=== PATIENT | male | born 1970 | race Caucasian/White ===

== ENCOUNTER 2020-12-31 13:11 | Outpatient (REF) | payer OTHER, SELFPAY ==
--- NOTE | ~2020-12-31 | CT_ITS ---
EXAMINATION: CT CHEST SCREENING CLINICAL INFORMATION: Nicotine dependence. COMPARISON: None. TECHNIQUE: Multidetector volumetric CT imaging of the chest is performed without contrast using low dose technique. Additional 2D coronal and sagittal reformatted images and axial 3D maximum intensity projection (MIP) images are generated on the CT workstation. This CT examination was performed using dose optimization techniques as appropriate, variously including the following: *Automated exposure control *Adjustment of mA and/or kV according to patient size (this includes techniques or standardized protocols for targeted exams where dose is matched to indication/reason for exam; i.e. extremities or head) *Use of iterative reconstruction technique DLP: 52 mGy-cm FINDINGS: LUNGS: The lungs are well-expanded and clear of acute pneumonic process. There is a 2 mm nodule left upper lobe, 2 mm calcification right lower lobe subpleural location axial image 300/6, 1 mm calcified nodule left lower lobe superior segment image 81/9. MEDIASTINUM: The thyroid lobes are symmetrical and normal. The central trachea and the bronchi widely patent. Heart size and the great vessels are normal caliber. There are small precarinal and pretracheal lymph nodes which appear benign measuring 7 mm and less in short axis. PLEURA: There is no pleural effusion. No pleural mass or thickening. AXILLA: Small shotty lymph nodes are seen in the axilla. The chest wall appears unremarkable. UPPER ABDOMEN: Visualized liver, spleen, contracted gallbladder and bilateral adrenal glands are unremarkable. OSSEOUS STRUCTURES: No lytic or sclerotic process seen. CT/CT lung screening IMPRESSION: 2 mm calcified and noncalcified likely benign. Small shotty lymph nodes in the mediastinum and the right axilla. ASSESSMENT: Lung-RADS category 2: Benign RECOMMENDATION: Low dose annual CT chest
== END 2020-12-31 13:12 | disposition home or self-care (01) ==
LOC: HO.CT 13:11
PROVIDERS: PCP Nurse Practitioner Family; Visit Provider Physician Assistant Medical
DX: Z12.2 Encounter for screening for malignant neoplasm of respiratory organs (principal); F17.210 Nicotine dependence, cigarettes, uncomplicated; R91.1 Solitary pulmonary nodule
CPT/HCPCS: 71271

== ENCOUNTER 2021-06-03 15:20 | Outpatient (REF) | payer OTHER, SELFPAY ==
[2021-06-03 16:48] LABS: Appearance Urine CLEAR; Color Urine YELLOW; Glucose Urine UA NEG (NEG); Leukocyte Esterase Urine NEG (NEG); Nitrite Urine NEG (NEG); PH 5.5 (5.0-8.0); Specific Gravity - Urine >= 1.030 (1.005-1.025); Urine Blood NEG (NEG); Urine Ketones NEG (NEG); Urine Protein TRACE MG/DL (NEG-TRACE)
[2021-06-03 17:05] LABS: Alanine Aminotransferase 22 U/L (0-40); Albumin Level 4.4 g/dL (3.5-5.0); Alkaline Phosphatase 27 U/L (39-117); Anion Gap 12 (12-20); Aspartate Amino Transferase 19 U/L (5-37); Bilirubin Total 0.4 mg/dL (0.0-1.0); Blood Urea Nitrogen 12 mg/dL (9-16); Calcium 9.5 mg/dL (8.4-10.2); Carbon Dioxide 26 mmol/L (22-29); Chloride 105 mmol/L (96-108); Cholesterol 215 mg/dL; Estimated Glomerular Filt Rate > 60; Glucose Fasting 91 mg/dL (60-99); HDL Cholesterol 25 mg/dL; Potassium 4.1 mmol/L (3.3-5.1); Sodium 139 mmol/L (135-145); Total Protein 6.8 g/dL (6.5-8.0); Triglycerides 410 mg/dL
[2021-06-03 17:29] LABS: TSH reflex Free T4 1.28 uIU/mL (0.32-4.0)
== END 2021-06-03 15:21 | disposition home or self-care (01) ==
LOC: HO.HMGCLDS 15:20
PROVIDERS: PCP Nurse Practitioner Family; Visit Provider Nurse Practitioner Family
DX: Z00.00 Encounter for general adult medical examination without abnormal findings (principal); Z12.5 Encounter for screening for malignant neoplasm of prostate
CPT/HCPCS: 36415; 80053; 80061; 81003; 84153; 84443

== ENCOUNTER 2021-08-08 11:41 | Outpatient (REF) | payer OTHER, SELFPAY ==
--- NOTE | ~2021-08-08 | XR_ITS ---
EXAMINATION: XR RIBS, RIGHT CLINICAL INFORMATION: Thoracic injury. COMPARISON: Chest of September 15, [address] of December 31, 2020 TECHNIQUE: PA chest and three-view right ribs FINDINGS: There is no evidence of acute parenchymal disease, pneumothorax, or pleural effusion. Heart normal size. No evidence of pulmonary edema. No acute displaced right rib fracture identified. No destructive bony lesion is evident. XR/XR ribs RT min 3V w CXR1V IMPRESSION: No acute parenchymal disease within the chest. No bony abnormality of the right ribs identified.
== END 2021-08-08 11:42 | disposition home or self-care (01) ==
LOC: HO.HMGCX 11:41
PROVIDERS: PCP Nurse Practitioner Family; Visit Provider Physician Assistant Medical
DX: S29.9XXA Unspecified injury of thorax, initial encounter (principal)
CPT/HCPCS: 71101

== ENCOUNTER 2021-10-20 10:08 | Emergency (ER) | payer OTHER, SELFPAY ==
[2021-10-20 10:22] VITALS: BP 98/77; PULSE 82; RESP 16; TEMP 36.1; O2SAT 97; BMI 28.3
--- NOTE | 2021-10-20 12:56 | ED.GENADULT ---
HPI - General Adult General Chief complaint: General Medical Stated complaint: Hemorrhoid Time Seen by Provider: 10/20/21 11:46 Source: patient Mode of arrival: ambulatory Limitations: no limitations History of Present Illness HPI narrative: 50-year-old female with a history of hemorrhoids that have flared up an O is resolved on their own presents for 5 days of severe hemorrhoid pain. Patient has a low lot of pain with stooling though he is able to stool. the hemorrhoid is bigger and more harder than it is ever been. He has no fevers. No bloody stool, no dark tarry stool. Patient has been using steroid cream and tucks medicated wipes to no relief. Related Data Previous Rx's Medication Instructions Recorded albuterol sulfate 90 mcg/actuation 2 puff INHALATION Q6H PRN 30 Days 11/27/20 aerosol inhaler (Ventolin HFA) #8.5 g fluticasone propionate 50 2 spray INTRANASAL DAILY 30 Days 04/04/21 mcg/actuation nasal #16 g spray,suspension meloxicam 15 mg tablet 15 mg PO DAILY PRN 30 Days #30 tab 05/25/21 atorvastatin 20 mg tablet 20 mg PO BEDTIME 30 Days #30 tab 09/09/21 Allergies Allergy/AdvReac Type Severity Reaction Status Date / Time garlic Allergy Unknown hives Verified 08/08/21 11:14 peanut [PEANUTS] Allergy Unknown HIVES Verified 10/20/21 10:21 penicillin V Allergy Unknown anaphylaxis Verified 08/08/21 11:14 Penicillins Allergy Unknown HIVES TO Verified 10/20/21 10:21 ALL CILLINS Sulfa (Sulfonamide Allergy Unknown HIVES, Verified 10/20/21 10:21 Antibiotics) rash, [SULFA (SULFONAMIDE severe ANTIBIOTICS)] hives barium sulfate AdvReac Unknown vivid Verified 08/08/21 11:14 nightmares nicotine AdvReac Unknown rash Verified 08/08/21 11:14 garlic Allergy Mild Vomiting Uncoded 08/08/21 11:14 nuts Allergy Unknown Vomiting Uncoded 08/08/21 11:14 Peanut (Diagnostic) Allergy Unknown hives Uncoded 08/08/21 11:14 orange juice AdvReac Unknown Hives Uncoded 08/08/21 11:14 Review of Systems Constitutional: Constitutional: Denies body ache(s), Denies chills, Denies fatigue, Denies fever(s), Denies headache(s), Denies malaise and Denies weakness Eyes: Eyes: Denies diplopia ENT: Denies vertigo, Denies dizziness, Denies headache(s) and Denies throat swelling Cardiovascular: Cardiovascular: Denies chest pain, Denies syncope, Denies leg edema, Denies lightheadedness, Denies Loss of Consciousness, Denies palpitations and Denies dyspnea Respiratory: Respiratory: Denies chest congestion, Denies cough and Denies dyspnea Gastrointestinal: Gastrointestinal: Denies abdominal pain, Denies melena, Denies hematochezia, Denies coffee ground emesis, Denies constipation, Denies diarrhea, Denies nausea and Denies vomiting Comments: Hemorrhoid Musculoskeletal: Musculoskeletal: Reports no additional musculoskeletal complaints Neurologic: Denies confusion, Denies vertigo, Denies dizziness, Denies syncope, Denies headache(s) and Denies weakness Psychiatric: Psychiatric: Denies anxiety, Denies confusion and Denies depression Endocrine: Endocrine: Denies fatigue and Denies palpitations Allergic/Immunologic: Allergic/Immunologic: Denies throat swelling PMFSH Past Medical History Medical History Asthma Hyperlipidemia Surgical History H/O wrist surgery Social History Social History Housing: House Patient Tobacco Use Status: Current everyday Tobacco user Cigarettes Per Day: 10 e-Cigarette/Vaping Use: Never Used Second Hand Smoke Exposure: No Advance Directives: No Advance Directives Information Provided: No service: No Current occupational status: unemployed Physical Exam ED Vital Signs: Vital Signs - 24 hr 10/20/21 10:22 Temperature 97.0 F Pulse Rate 82 Respiratory Rate 16 Blood Pressure 98/77 Pulse Oximetry 97 BMI result Body Mass Index 28.3 Const General: no acute distress, well developed, alert and awake; No confusion Nutritional Appearance: well nourished Orientation/consciousness: patient oriented x3 and No confusion Limitations: no limitations HENMT Head: Yes normal to inspection, Yes No palpable skull fracture present, Yes normocephalic and Yes atraumatic Eyes Pupils: Equal, round and reactive pupils present EOM: EOMs intact bilaterally Neck Neck: Yes normal visual inspection, Yes full ROM and Yes no lymphadenopathy Chest Chest palpation & inspection: normal inspection of the chest Resp Effort & Inspection: normal respiratory effort and able to speak in complete sentences Auscultation: clear to auscultation bilaterally, no crackles, no rales, no rhonchi and no wheezes Cardio Rate: regular rate Rhythm: regular rhythm GI Inspection: Yes normal to inspection Palpation (GI): Soft to palpation, not firm and nontender Rectal Exam - Male: Yes External hemorrhoid(s) present and Yes tenderness Skin General skin exam: no rashes or lesions noted Neuro General: patient oriented x3 and No confusion Cranial nerves: Yes Equal, round and reactive pupils present Extrem General: Yes normal to inspection, Yes full ROM and Yes capillary refill normal Course Course Course Narrative: On exam, there is a 3 cm thrombosed external hemorrhoid at the anal verge on the left lateral side of anus, no cellulitis or swelling, no warmth. Thrombosed hemorrhoid is hard and purplish I am concerned to incise and decompress this thrombosed hemorrhoid as hemorrhoid is very close to the anal verge [place] texted with Dr Roy, who will see patient in office early this week Provided pain control, counseled Sitz baths, gave return precautions Discharge Plan Discharge Clinical Impression: External hemorrhoid, thrombosed Patient Disposition: Home, Self-Care Instructions: Hemorrhoids (ED) Additional Instructions: please call Dr Juan on Thursday at [phone]. Their office is closed on Thursday. The surgeon is aware if you, and will get you in to the office on Thursday. In the meantime, please alternate Tylenol and ibuprofen as I have indurated below. Because you do not have a bath tub, and are unable to do Sitz baths, please get of hand towel as hot as you can stand with hot water, and sit on it for 5 times a day for 50 minutes at a time. Please return to emergency room if you have fevers, uncontrolled pain, or any other new or concerning symptoms. Please alternate Tylenol and ibuprofen for pain. Take 1 or the other every 4 hours. For example, at midnight take 1000 mg of Tylenol, then at 4:00 a.m. take 800 mg ibuprofen, at 8:00 a.m. take 1000 mg of Tylenol, at noon take 800 mg of ibuprofen, at 4:00 p.m. take 1000 mg of Tylenol, at 8:00 p.m. take 800 mg of ibuprofen. Do not exceed 3000 mg of Tylenol in 24 hours. This method is proven to be as effective as an opioid for pain control. Prescriptions: No Action albuterol sulfate [Ventolin HFA] 90 mcg/actuation HFA aerosol inhaler 2 puff inhalation Q6H PRN (Reason: shortness of breath or wheezing) 30 Days Qty: 8.5 2RF fluticasone propionate 50 mcg/actuation spray,suspension 2 spray intranasal DAILY 30 Days Qty: 16 2RF meloxicam 15 mg tablet 15 mg PO DAILY PRN (Reason: pain) 30 Days Qty: 30 1RF atorvastatin 20 mg tablet 20 mg PO BEDTIME 30 Days Qty: 30 2RF Referrals: Colin Juan MD [Physician] - Interventions: ED Discharge Assessment Last Done: 10/20/21 13:19 Discharge Date/Time: 10/20/21 13:22
== END 2021-10-20 13:22 | disposition home or self-care (01) ==
PROVIDERS: Emergency Provider Emergency Medicine; PCP Nurse Practitioner Family
DX: K64.5 Perianal venous thrombosis (principal); J45.909 Unspecified asthma, uncomplicated; Z88.0 Allergy status to penicillin; Z88.2 Allergy status to sulfonamides
CPT/HCPCS: 99282; 99283

== ENCOUNTER → 2021-10-24 15:14 | Outpatient (BNVA) | payer OTHER, SELFPAY | PROVIDERS: PCP Nurse Practitioner Family; Referring Provider Nurse Practitioner Family; Visit Provider Surgery | DX: K64.5 Perianal venous thrombosis (principal) | CPT/HCPCS: 99202 ==

== ENCOUNTER 2023-06-02 11:28 | Outpatient (AMB) | payer OTHER, SELFPAY ==
--- NOTE | 2023-06-02 11:28 | MHC.PC.OV ---
Vital Signs 06/02/23 11:32 Height 5 ft 4 in Weight 179 lb BMI 30.7 BP 110/70 Blood Pressure Location Rt brachial Position Sitting Pulse 82 Pulse Source Pulse Oximeter Pulse Oximetry (%) 97 Oxygen Delivery Method Room Air Intake Visit Reasons: annual PE Intake Note: Patient here for physical exam, he would like to talk about a pinched nerve on left side and starts from the hip down to the knee. states it has become constant. Pt states he has not had a colonoscopy. Allergies garlic Allergy (Unknown, Verified 06/02/23 11:34) hives peanut [PEANUTS] Allergy (Unknown, Verified 06/02/23 11:34) HIVES Penicillins Allergy (Unknown, Verified 06/02/23 11:34) HIVES TO ALL CILLINS Sulfa (Sulfonamide Antibiotics) [SULFA (SULFONAMIDE ANTIBIOTICS)] Allergy (Unknown, Verified 06/02/23 11:34) HIVES, rash, severe hives barium sulfate Adverse Reaction (Unknown, Verified 06/02/23 11:34) vivid nightmares nicotine Adverse Reaction (Unknown, Verified 06/02/23 11:34) rash nuts Allergy (Unknown, Uncoded 06/02/23 11:34) Vomiting orange juice Adverse Reaction (Unknown, Uncoded 06/02/23 11:34) Hives Medication List - Last Reconciled 06/02/23 by RASHI Dickey- albuterol sulfate 90 mcg/actuation (Ventolin HFA) 2 puffs inhalation Q6H PRN atorvastatin 20 mg PO BEDTIME 30 days fluticasone propionate 50 mcg/actuation 2 sprays intranasal DAILY 30 days mometasone-formoterol 200-5 mcg/actuation (Dulera) 2 puffs inhalation BID Tobacco use date assessed: 06/02/23 Dental Screening Dental Screen Date: 06/02/23 HPI annual PE HPI Details Pt is here for a PE. Will order labs. Due for PSA, will order. Denies dribbling with urination, weak stream, and frequent nocturia. Pt was previously referred for a colonoscopy but he has not had time to do this. Will order cologuard. Pt c/o lower back pain. He reports radicular symptoms to his left lower extremities as well. Will order XR. Denies any signs of cauda equina. COUNTS INCLUDE 234 BEDS AT THE [facility] Medical History Hyperlipidemia Asthma Surgical History H/O wrist surgery Family History Father Mental health disorder Social History Housing: House Patient Tobacco Use Status: Current everyday Tobacco user Cigarettes Per Day: 10 e-Cigarette/Vaping Use: Never Used Second Hand Smoke Exposure: No service: No Current occupational status: unemployed Cognitive needs: No Hearing needs: No Vision needs: No Questionnaire Thrive Questionnaire Date Thrive assessed: 06/02/22 TRENA-7 AMB Questionnaire TRENA-7 Date TRENA - 7 assessed: 06/02/22 Source: Developed by Drs. Toño Cabezas, Edith Lindquist, Ishan Huerta and colleagues, with an educational gabrielle from [employer]. Review of Systems Const Denies chills and Denies fever(s) Eyes Denies blurry vision ENT Denies vertigo, Denies dizziness and Denies sore throat Card Denies chest pain at rest, Denies chest pain with activity, Denies diaphoresis, Denies dyspnea and Denies dyspnea on exertion Resp Denies cough, Denies dyspnea, Denies dyspnea on exertion and Denies wheezing GI Denies abdominal pain, Denies melena, Denies hematochezia, Denies constipation, Denies diarrhea and Denies loose stools Denies hematuria Musc Reports back pain Skin/Breast Denies lesions Neuro Denies vertigo and Denies dizziness Psych Denies anxiety, Denies depression, Denies homicidal ideation, Denies suicidal ideation and Denies other (substance abuse) Aller/Immun Denies wheezing Physical exam (Primary Care) Vital Signs: Last Vital Signs Pulse 82 06/02/23 11:32 BP 110/70 06/02/23 11:32 Pulse Ox 97 06/02/23 11:32 Oxygen Delivery Method Room Air 06/02/23 11:32 BMI result Body Mass Index 30.7 Tobacco/Smoking Status: Tobacco use Status Tobacco use date assessed 11/28/23 11/28/23 11:38 Patient Tobacco Use Status Current everyday Tobacco 06/02/23 11:31 e-Cigarette/Vaping Use Never Used 06/02/23 11:31 Thrive Assessment: Date of Thrive Assessment Date Thrive assessed 06/02/22 06/02/23 11:31 Const General: cooperative Nutritional Appearance: well nourished Orientation/consciousness: patient oriented x3 HENMT Head: Yes normal to inspection, Yes normocephalic and Yes atraumatic Ears: TM's normal bilaterally Eyes General: appearance normal, both eyes and all related structures Alignment and Position: alignment normal and position normal Neck Neck: Yes normal visual inspection and Yes no lymphadenopathy Thyroid: Thyroid normal Resp Effort & Inspection: normal respiratory effort Auscultation: clear to auscultation bilaterally and diminished lung sounds Cardio Rate: regular rate Rhythm: regular rhythm Heart sounds: S1 normal heart sound present, S2 normal heart sound present and no murmurs GI Palpation (GI): Soft to palpation and nontender Auscultation: normal bowel sounds Male General Exam: Yes normal external exam Penis: normal penis Scrotum: scrotum normal, testes descended bilaterally and no inguinal hernias Testes: no testicular mass Skin Rashes: no rashes Neuro General: patient oriented x3, moves all extremities, no focal motor deficits and deep tendon reflexes 2+ bilaterally Romberg Test: Negative Psych Appearance: grossly normal Mental Status: mental status grossly normal Speech and movement: Normal speech and movement present Affect: normal affect Attitude: cooperative Thought process: Normal thought process present Thought content: Normal thought content present Insight: Good insight present (Psych) Judgement: Good judgement present (Psych) Assessment and Plan Assessment & Plan (1) Physical exam: Code(s): Z00.00 - Encounter for general adult medical examination without abnormal findings Plan: Labs ordered (2) Screening PSA (prostate specific antigen): Code(s): Z12.5 - Encounter for screening for malignant neoplasm of prostate Plan: PSA ordered (3) Chronic radicular pain of lower back: Code(s): M54.16 - Radiculopathy, lumbar region; G89.29 - Other chronic pain Plan: XR ordered Plan The patient agreed to the use of a medical research tech for this encounter. Scribed for JORI Reynoso by justine Camp scribe, on 06/02/2023 at 11:45 EST. Orders: Orders Complete Blood Count Auto Diff Today Z00.00 - Encounter for general adult medical examination without abnormal findings Comprehensive Neptune. Panel Fast Today Z00.00 - Encounter for general adult medical examination without abnormal findings TSH reflex Free T4 Today Z00.00 - Encounter for general adult medical examination without abnormal findings UA CC w/rflx Micro + Cult Today Z00.00 - Encounter for general adult medical examination without abnormal findings Lipid Panel Today Z00.00 - Encounter for general adult medical examination without abnormal findings Prostate Specific Antigen Scr Today Z12.5 - Encounter for screening for malignant neoplasm of prostate XR lumbar spine 2-3V Today G89.29 - Other chronic pain, M54.16 - Radiculopathy, lumbar region Referrals Cologuard Test Z12.11 - Encounter for screening for malignant neoplasm of colon, Z12.12 - Encounter for screening for malignant neoplasm of rectum Coding Level of Care Code Est Pt Prev Care 40-64y(33249) Diagnoses Physical exam Z00.00 Screening PSA (prostate specific antigen) Z12.5 Chronic radicular pain of lower back M54.16; G89.29
[2023-06-02 11:32] VITALS: BP 110/70; PULSE 82; O2SAT 97; BMI 30.7
== END 2023-06-02 12:12 | disposition home or self-care (01) ==
PROVIDERS: Visit Provider Nurse Practitioner Family
DX: Z00.00 Encounter for general adult medical examination without abnormal findings (principal); Z12.5 Encounter for screening for malignant neoplasm of prostate; M54.16 Radiculopathy, lumbar region; G89.29 Other chronic pain
CPT/HCPCS: 99396

== ENCOUNTER 2023-08-12 13:01 | Outpatient (AMB) | payer OTHER, SELFPAY ==
[2023-08-12 13:04] VITALS: BP 116/69; PULSE 83; BMI 31.3
--- NOTE | 2023-08-12 13:04 | A.OFFVIS_ITS ---
Intake Vital Signs 08/12/23 13:04 Height 5 ft 4 in Weight 182 lb 8.684 oz BMI 31.3 BP 116/69 Blood Pressure Location Lt brachial Position Sitting Pulse 83 Intake Visit Reasons: Colonoscopy Screening Intake Note: Patient presents to in office visit today as a new patient for colonoscopy screening. CC: Patient reports he gets constipated from time to time. Patient states that the only time he has black stools is when he eats something he is intolerant to. Mental Measurements Teacher Required: No Accompanied by: Self / Same As Patient Allergies garlic Allergy (Unknown, Verified 08/12/23 13:17) hives peanut [PEANUTS] Allergy (Unknown, Verified 08/12/23 13:17) HIVES Penicillins Allergy (Unknown, Verified 08/12/23 13:17) HIVES TO ALL CILLINS Sulfa (Sulfonamide Antibiotics) [SULFA (SULFONAMIDE ANTIBIOTICS)] Allergy (Unknown, Verified 08/12/23 13:17) HIVES, rash, severe hives barium sulfate Adverse Reaction (Unknown, Verified 08/12/23 13:17) vivid nightmares nicotine Adverse Reaction (Unknown, Verified 08/12/23 13:17) rash nuts Allergy (Unknown, Uncoded 06/02/23 11:34) Vomiting orange juice Adverse Reaction (Unknown, Uncoded 06/02/23 11:34) Hives HPI Colonoscopy Screening HPI Details 52-year-old male here for preprocedural meeting to discuss a screening colonoscopy. He is referred by Colin Mei of [facility] primary care. PMX Asthma High cholesterol Chronic low back pain with radiculopathy Left sacroiliac dysfunction Paresthesias Positive Cologuard test * SURGICAL HISTORY Wrist surgery for boxer fracture Dermal cyst removal * ALLERGIES Penicillin - hives facial swelling Sulfa - same as above Barium sulfate Garlic - intolerance Peanuts - intolerance Nicotine patches on skin Nuts - intolerance [place] juice - intolerance * [facility] LABS: No current labs in our system since 2020 TODAY'S VISIT This will be his first colonoscopy. He denies any bowel problems except when he eats the above intolerant foods, no upper GI problems. He is fairly naive to anesthesia and sedation. His asthma is well controlled, no cardiac problems. NO ID problems. His brother had colon polyps removed. [facility] Medical History (Updated 08/12/23 @ 17:13 by KURT Horne) Screening for colon cancer Screening PSA (prostate specific antigen) Physical exam Hyperlipidemia Asthma Surgical History H/O wrist surgery Family History Father Mental health disorder Maternal Aunt Cancer Maternal Uncle Cancer Social History Housing: House Patient Tobacco Use Status: Current everyday Tobacco user Cigarettes Per Day: 10 e-Cigarette/Vaping Use: Never Used Second Hand Smoke Exposure: No service: No Current occupational status: unemployed Cognitive needs: No Hearing needs: No Vision needs: No Review of Systems Const Denies fatigue, Denies fever(s), Denies night sweats, Denies poor appetite and Denies weight loss Eyes Details: glasses Reports requires corrective lenses ENT Reports Normal hearing present, Denies dental pain, Denies dysphagia, Denies hearing loss, Denies mouth pain, Denies odynophagia, Denies throat swelling, Denies tongue swelling and Reports other (Dentition adequate) Card Reports no additional complaints Resp Reports no additional complaints GI Details: Denies abdominal pain, Denies melena, Denies bloating, Denies hematochezia, Denies constipation, Denies GI cramping, Denies dysphagia, Denies excessive flatus, Denies early satiety, Denies heartburn, Denies diarrhea, Denies nausea, Denies odynophagia, Denies vomiting and Denies hematemesis Skin/Breast Denies pruritus, Denies lesions, Denies rash and Denies jaundice Neuro Reports Normal hearing present and Denies Abnormal speech present Endo Denies fatigue Aller/Immun Denies throat swelling and Denies tongue swelling Physical Exam Vital Signs: Last Vital Signs Pulse 83 08/12/23 13:04 BP 116/69 08/12/23 13:04 BMI result Body Mass Index 31.3 Const General: cooperative, no acute distress, well developed and well groomed Nutritional Appearance: well nourished and obese Orientation/consciousness: oriented to person, oriented to place and oriented to time Limitations: No language barrier HEENT Head: Yes normocephalic and Yes atraumatic Eyes General: appearance normal, both eyes and all related structures Pupils: Equal, round and reactive pupils present Neck Neck: Yes normal visual inspection and Yes no lymphadenopathy Thyroid: Thyroid normal Resp Effort & Inspection: normal respiratory effort and able to speak in complete sentences Auscultation: clear to auscultation bilaterally Cardio Rate: regular rate Rhythm: regular rhythm Heart sounds: Normal, physiologic split S2 sound present Peripheral pulses: radial pulses present and posterior tibial pulses present GI Inspection: No distended, No Abdominal panniculus present and Yes obesity Palpation (GI): Soft to palpation, nontender, no guarding, not rigid and No hepatosplenomegaly present Percussion: Yes normal to percussion Auscultation: normal bowel sounds Rectal Exam - Male: Yes deferred Skin General skin exam: no rashes or lesions noted, turgor normal, skin not dry, no jaundice, No spider nevi and no striae Rashes: no rashes Nails: normal Neuro General: oriented to person, oriented to place and oriented to time Cranial nerves: Yes Equal, round and reactive pupils present and Yes Normal hearing present Speech: No Abnormal speech present Extrem General: Yes normal to inspection, No clubbing, No cyanosis and No edema Psych Appearance: grossly normal and well kempt Mental Status: mental status grossly normal Speech and movement: Normal speech and movement present Affect: normal affect Attitude: cooperative Thought process: Normal thought process present and not confabulating Thought content: Normal thought content present Insight: Fair insight present (Psych) Judgement: Fair judgement present (Psych) Assessment & Plan Assessment & Plan (1) Positive colorectal cancer screening using Cologuard test: Code(s): R19.5 - Other fecal abnormalities (2) Pre-op examination: Code(s): Z01.818 - Encounter for other preprocedural examination (3) Family history of polyps in the colon: Comment: Brother Code(s): Z83.719 - Family history of colon polyps, unspecified Plan This will be his first colonoscopy. He denies any bowel problems except when he eats the above intolerant foods, no upper GI problems. He is fairly naive to anesthesia and sedation. His asthma is well controlled, no cardiac problems. NO ID problems. His brother had colon polyps removed. Orders: Orders Comprehensive Met. Panel Today R19.5 - Other fecal abnormalities, Z01.818 - Encounter for other preprocedural examination Complete Blood Count Auto Diff Today R19.5 - Other fecal abnormalities, Z01.818 - Encounter for other preprocedural examination Colonoscopy - GI Use Only Today R19.5 - Other fecal abnormalities Medications: New bisacodyl (Dulcolax (bisacodyl)) 10 mg (2 x 5 mg) PO BEDTIME 2 days 4 tabs 0RF Coding Level of Care Code New Pt Level 3 (00175) Diagnoses Positive colorectal cancer screening using Cologuard test R19.5 Pre-op examination Z01.818 Family history of polyps in the colon Z83.710
== END 2023-08-12 13:56 | disposition home or self-care (01) ==
PROVIDERS: PCP Nurse Practitioner Family; Visit Provider Nurse Practitioner
DX: R19.5 Other fecal abnormalities (principal); Z01.818 Encounter for other preprocedural examination; Z83.719 Family history of colon polyps, unspecified
CPT/HCPCS: 99203

== ENCOUNTER → 2023-08-12 13:01 | Outpatient (BNVA) | payer OTHER, SELFPAY | PROVIDERS: PCP Nurse Practitioner Family; Visit Provider Nurse Practitioner | DX: Z01.818 Encounter for other preprocedural examination (principal); R19.5 Other fecal abnormalities; Z83.719 Family history of colon polyps, unspecified | CPT/HCPCS: 99202 ==

== ENCOUNTER 2023-10-08 00:18 | Observation (INO) | payer OTHER, SELFPAY ==
--- NOTE | ~2023-10-08 | US_ITS ---
EXAMINATION: ULTRASOUND DUPLEX ARTERIAL VENOUS COMP CLINICAL INFORMATION: Right upper quadrant pain. Findings of liver masses COMPARISON: Abdominal ultrasound 10/08/2023 TECHNIQUE: Doppler spectrum analysis and color flow Doppler imaging was performed FINDINGS: PORTAL VEINS: The extrahepatic portal vein, main, right and left portal veins are hepatopedal. HEPATIC ARTERY: The main hepatic artery is antegrade with a velocity of 91.7 cm/s. The right hepatic vein is not seen. The left hepatic vein is antegrade. HEPATIC VEINS: The main hepatic vein, left hepatic vein and right hepatic vein appear normal with normal patency, waveform and direction. IVC WAVEFORM: Normal. The spleen measures 13.3 cm in size. The splenic vein is patent. There is no ascites. There are no collateral vessels. US/US duplex arterial venous comp IMPRESSION: No abnormalities of the portal veins, hepatic arteries, hepatic veins, or splenic vein.
--- NOTE | ~2023-10-08 | US_ITS ---
EXAMINATION: US ABDOMEN LIMITED CLINICAL INFORMATION: Right upper quadrant pain.. COMPARISON: None available. TECHNIQUE: Real-time imaging of the right upper quadrant abdominal viscera. FINDINGS: PANCREAS: The pancreas is obscured by bowel gas. LIVER: There are numerous low-density liver masses measuring up to 4.1 x 4.3 x 4.6 cm. There is no intrahepatic biliary duct dilatation seen. GALLBLADDER: Normal. The gallbladder is physiologically distended without evidence of stones, sludge, polyps, wall thickening or pericholecystic fluid. COMMON BILE DUCT: Normal in caliber measuring 0.3 cm in diameter. RIGHT KIDNEY: Not assessed. FREE FLUID: None. US/US abdomen limited IMPRESSION: There are numerous low-density liver masses measuring up to 4.6 consistent with metastatic disease. No gallstones or evidence for biliary dilatation.
--- NOTE | ~2023-10-08 | CT_ITS ---
EXAMINATION: CT ABDOMEN AND PELVIS WITHOUT CONTRAST CLINICAL INFORMATION: Abdominal pain. COMPARISON: None available. TECHNIQUE: Multidetector volumetric imaging was performed from the superior aspect of the liver through the pubic symphysis. Sagittal and coronal reformatted images were obtained on the technologist's workstation. This CT examination was performed using dose optimization techniques as appropriate, variously including the following: *Automated exposure control *Adjustment of mA and/or kV according to patient size (this includes techniques or standardized protocols for targeted exams where dose is matched to indication/reason for exam; i.e. extremities or head) *Use of iterative reconstruction technique DLP: 549 mGy-cm FINDINGS: LUNG BASES: There is lower lung field emphysematous change with interstitial coarsening. LIVER, GALLBLADDER, AND BILIARY TREE: There are numerous low-density liver lesions seen throughout the liver measuring up to 3 cm. There is no intrahepatic biliary duct dilatation. The gallbladder is unremarkable with no evidence of radiopaque gallstones, gallbladder wall thickening, or obvious pericholecystic inflammatory changes. PANCREAS: There is a 3.6 cm low-density mass distal body/tail of the pancreas. SPLEEN: Unremarkable. ADRENAL GLANDS: Unremarkable. KIDNEYS AND URETERS: The kidneys are normal in size, shape, and attenuation. No hydronephrosis, hydroureter, or calculi seen. No perinephric stranding. BLADDER: Unremarkable. GASTROINTESTINAL TRACT: The small and large bowel are unremarkable. The appendix is unremarkable. ABDOMINAL WALL: No significant hernia is appreciated. LYMPH NODES: Normal. VASCULAR: There is atherosclerotic plaque of the abdominal aorta and proximal branches. PELVIC VISCERA: Unremarkable. OSSEOUS STRUCTURES: Unremarkable. CT/CT abdomen pelvis wo IV con IMPRESSION: 3.6 cm low-density mass in the distal body/tail of the pancreas consistent with neoplasm and numerous low-density liver lesions suspicious for metastatic disease. Fleischner guidelines were followed.
[2023-10-08 00:23] VITALS: BP 149/90; PULSE 83; RESP 20; TEMP 37; O2SAT 95; BMI 30.9
[2023-10-08 00:34] LABS: MANUAL DIFF FLAG NO
[2023-10-08 00:35] LABS: Basophils Absolute Auto 0.1 X10*3/uL (0.0-0.2); Basophils Percent Auto 0.8 % (0-2); Eosinophils Absolute Auto 0.4 X10*3/uL (0.0-0.4); Eosinophils Percent Auto 2.9 % (0-4); Hematocrit 48.5 % (42.0-52.0); Hemoglobin 16.5 g/dl (14.0-18.0); Imm Gran Abs Auto 0.06 X10*3/uL (0.00-0.03); Imm Gran Pct Auto 0.5 % (0.0-0.4); Lymphocytes Percent Auto 22.5 % (20-40); Mean Corpuscular Hemoglobin 30.8 pg (27.0-33.0); Mean Corpuscular Volume 90.7 fL (80.0-98.0); Mean Platelet Volume 9.8 fL (9.4-12.4); Monocytes Percent Auto 7.8 % (2-11); Neutrophils Absolute Auto 8.6 x10*3/uL (2.0-8.3); Neutrophils Percent Auto 65.5 % (45-73); Platelet Count 209 X10*3/uL (160-400); Red Blood Count 5.35 X10*6/uL (4.60-5.80); Red Cell Distribution Width 12.5 % (11.0-16.0); White Blood Count 13.1 X10*3/uL (4.8-10.8)
[2023-10-08 00:48] LABS: Alanine Aminotransferase 78 U/L (0-40); Albumin Level 4.1 g/dL (3.5-5.0); Alkaline Phosphatase 58 U/L (39-117); Anion Gap 13 (12-20); Aspartate Amino Transferase 46 U/L (5-37); Bilirubin Direct 0.2 mg/dL (0.0-0.5); Bilirubin Total 0.5 mg/dL (0.0-1.0); Blood Urea Nitrogen 13 mg/dL (9-16); Calcium 9.6 mg/dL (8.4-10.2); Carbon Dioxide 22 mmol/L (22-29); Chloride 106 mmol/L (96-108); Creatinine Clr Calc Pharmacy 86.8; Estimated Glomerular Filt Rate > 60; Glucose Random 112 mg/dL (60-115); Lipase 30 U/L (8-78); Potassium 4.1 mmol/L (3.3-5.1); Sodium 137 mmol/L (135-145); Total Protein 7.4 g/dL (6.5-8.0)
--- NOTE | 2023-10-08 00:49 | ED_ITS ---
HPI - Abdominal Pain General Chief Complaint: Abdominal Pain Stated Complaint: Abd pain Time Seen by Provider: 10/08/23 00:37 Source: patient Mode of arrival: ambulatory Limitations: no limitations History of Present Illness HPI narrative: 52-year-old male came in for evaluation of abdominal pain for the past 3 days. Three days of abdominal pain mostly on the right side of the abdomen, pain has been constant described as dull aching 10/10 in severity, no nausea or vomiting association, patient is known to have history of constipation last bowel movement with 3-4 days ago, able to pass gas rectally, no dysuria, no frequency urination, no hematuria, no nausea, no vomiting. Pain has been progressively getting worse for 3 days. Patient reports pain is worsening with any type of foods. Declined use alcohol or drugs. Related Data Previous Rx's Medication Instructions Recorded atorvastatin 20 mg tablet 20 mg PO BEDTIME 30 days #30 tabs 03/13/22 albuterol sulfate 90 mcg/actuation 2 puff inhalation Q6H PRN 06/02/22 aerosol inhaler (Ventolin HFA) shortness of breath or wheezing #8.5 grams mometasone-formoterol HFA 200 2 puff inhalation BID #13 grams 09/02/22 mcg-5 mcg/actuation aerosol inhaler (Dulera) bisacodyl 5 mg tablet,delayed 10 mg (2 x 5 mg) PO BEDTIME 2 days 08/12/23 release (Dulcolax (bisacodyl)) #4 tabs fluticasone propionate 50 2 spray intranasal DAILY 30 days 09/07/23 mcg/actuation nasal #16 grams spray,suspension Allergies Allergy/AdvReac Type Severity Reaction Status Date / Time garlic Allergy Unknown hives Verified 10/08/23 00:23 peanut [PEANUTS] Allergy Unknown HIVES Verified 10/08/23 00:23 Penicillins Allergy Unknown HIVES TO Verified 10/08/23 00:23 ALL CILLINS Sulfa (Sulfonamide Allergy Unknown HIVES, Verified 10/08/23 00:23 Antibiotics) rash, [SULFA (SULFONAMIDE severe ANTIBIOTICS)] hives barium sulfate AdvReac Unknown vivid Verified 10/08/23 00:23 nightmares nicotine AdvReac Unknown rash Verified 10/08/23 00:23 nuts Allergy Unknown Vomiting Uncoded 10/08/23 00:23 orange juice AdvReac Unknown Hives Uncoded 10/08/23 00:23 Review of Systems Review of Systems All other systems are reviewed and are negative Constitutional: Reports as per HPI and Reports no additional constitutional complaints Eyes: Reports as per HPI and Reports no additional eye complaints Reports system reviewed and no additional complaints, except as documented Cardiovascular: Reports as per HPI and Reports no additional cardiovascular complaints Respiratory: Reports as per HPI and Reports no additional respiratory complaints Gastrointestinal: Reports as per HPI and Reports no additional gastrointestinal complaints Genitourinary: Reports no additional female genitourinary complaints Musculoskeletal: Reports no additional musculoskeletal complaints Skin/Breast: Reports system reviewed and no additional complaints, except as docu Psychiatric: Reports no additional psychiatric complaints Endocrine: Reports no additional endocrine complaints Hematologic/Lymphatic: Reports no additional hematologic/lymphatic complaints Allergic/Immunologic: Reports no additional allergic/immunologic complaints Reports system reviewed and no additional complaints, except as documented and Reports Abnormal speech present [facility] Past Medical History Medical History Screening for colon cancer Screening PSA (prostate specific antigen) Physical exam Hyperlipidemia Asthma Surgical History H/O wrist surgery Family History Family History Father Mental health disorder Maternal Aunt Cancer Maternal Uncle Cancer Social History Social History Housing: House Alcohol intake: never Patient Tobacco Use Status: Current everyday Tobacco user Cigarettes Per Day: 10 Smoked in Last 30 Days: Yes e-Cigarette/Vaping Use: Never Used Second Hand Smoke Exposure: No Use of substances other than those prescribed or required for medical reasons: Yes Substance Use Type: Marijuana Advance Directives: No Advance Directives Information Provided: Yes service: No Current occupational status: unemployed Cognitive needs: No Hearing needs: No Vision needs: No Physical Exam ED Vital Signs: Vital Signs - 24 hr 10/08/23 00:23 10/08/23 01:13 Temperature 98.6 F 98.4 F Pulse Rate 83 89 Respiratory Rate 20 17 Blood Pressure 149/90 H 125/73 Pulse Oximetry 95 95 Oxygen Delivery Method Room Air Room Air BMI result Body Mass Index 30.9 Vital signs have been reviewed and appear to be correct. Blood pressure elevated. Heart rate normal. Respiratory rate normal. Temperature normal. Oxygen saturation normal. Appearance: Alert. Oriented X3. No acute distress. Head: Normal external exam. Normocephalic. Atraumatic. No Fish signs noted. No raccoon eyes noted Eyes: PERRLA. EOMI. Conjunctiva and sclera normal. Eyelids normal. ENT: TM's Normal. Pharynx normal. Uvula midline. Moist mucous membranes. No trismus noted. No drooling noted. No muffled voice noted. Neck: Normal inspection. Neck supple. FROM. No adenopathy. Thyroid Normal. No meningeal signs. No neck mass noted. CVS: Normal heart rate and rhythm. Heart sound normal. No murmurs noted. Pulses normal throughout. Respiratory: No respiratory distress. Painless inspiration. Breath sounds normal. No wheezes/rales/rhonchi noted. Chest nontender. No accessory muscle usage noted or decreased air movement noted. Abdomen: Soft, RUQ/epigastric abdominal tenderness, no guarding, no rebound tenderness. Bowel sounds normal in all 4 quadrants. No distention noted. No organomegaly noted. No visible injury noted. Back: No CVA tenderness. Full range of motion noted. Skin: Skin warm and dry. Normal skin color. Normal skin turgor. No rashes/lesions/lacerations noted. Extremities: No lower extremity edema. Extremities exhibit normal range of motion. Extremities nontender. Neuro: Oriented X 3. Cranial nerve exam: II-XII are grossly intact No motor deficit. No sensory deficit. Reflexes normal. Course Reevaluation(s) Reevaluation #1: CT/ultrasound of the abdomen consistent with pancreatic mass with hepatic multiple lesions concern of metastases. Will admit the patient for further staging and pain control. Time: 02:36 Medical Decision Making Differential Diagnosis Differential Diagnoses: The differential diagnosis associated with the presentation includes (Acute pancreatitis, acute colitis, acute diverticulitis, acute cholecystitis, acute hepatitis, pancreatic mass, metastatic lesions, electrolyte derangement, severe anemia.) Admission/Observation Consideration of admission/observation: Escalation of care including admission/observation considered Consult Healthcare Provider Management of the patient was discussed with: Hospitalist (Dr. Lau) Lab Data MDM Lab Attestation statement: I reviewed the patient's lab results. 10/08/23 00:30 10/08/23 00:30 Labs: Lab Results 10/08/23 Range/Units 00:30 WBC 13.1 H (4.8-10.8) X10*3/uL RBC 5.35 (4.60-5.80) X10*6/uL Hgb 16.5 (14.0-18.0) g/dl Hct 48.5 (42.0-52.0) % MCV 90.7 (80.0-98.0) fL MCH 30.8 (27.0-33.0) pg MCHC 34.0 (31.0-36.0) g/dl RDW 12.5 (11.0-16.0) % Plt Count 209 (160-400) X10*3/uL MPV 9.8 (9.4-12.4) fL Immature Gran % (Auto) 0.5 H (0.0-0.4) % Neut % (Auto) 65.5 (45-73) % Lymph % (Auto) 22.5 (20-40) % [place] % (Auto) 7.8 (2-11) % Eos % (Auto) 2.9 (0-4) % Baso % (Auto) 0.8 (0-2) % Lymph # (Auto) 3.0 (1.2-4.9) X10*3/uL [place] # (Auto) 1.0 (0.1-1.2) X10*3/uL Eos # (Auto) 0.4 (0.0-0.4) X10*3/uL Baso # (Auto) 0.1 (0.0-0.2) X10*3/uL Abs Immat Gran (auto) 0.06 H (0.00-0.03) X10*3/uL Absolute Neuts (auto) 8.6 H (2.0-8.3) x10*3/uL Absolute Nucleated RBC 0.000 (0.0-0.012) X10*3/uL Nucleated RBC % (auto) 0.0 (0.0-0.2) /100WBC Sodium 137 (135-145) mmol/L Potassium 4.1 (3.3-5.1) mmol/L Chloride 106 (96-108) mmol/L Carbon Dioxide 22 (22-29) mmol/L Anion Gap 13 (12-20) BUN 13 (9-16) mg/dL Creatinine 0.96 (0.5-1.4) mg/dL Estim Creat Clear Calc 86.8 Estimated GFR > 60 Random Glucose 112 (60-115) mg/dL Calcium 9.6 (8.4-10.2) mg/dL Total Bilirubin 0.5 (0.0-1.0) mg/dL Direct Bilirubin 0.2 (0.0-0.5) mg/dL AST 46 H (5-37) U/L ALT 78 H (0-40) U/L Alkaline Phosphatase 58 (39-117) U/L Total Protein 7.4 (6.5-8.0) g/dL Albumin 4.1 (3.5-5.0) g/dL Lipase 30 (8-78) U/L Independent Interpretation I performed an independent interpretation of an: Ultrasound (Abdomen:There are numerous low-density liver masses measuring up to 4.6 consistent with metastatic disease. ) and CT Scan (Abdomen and pelvis:3.6 cm low-density mass in the distal body/tail of the pancreas consistent with neoplasm and numerous low- density liver lesions suspicious for metastatic disease. ) Radiology Impression Discussion of test interpretation with radiology: I have reviewed the radiologist's reading. Medications Administered Discontinued Medications Generic Name Dose Route Start Last Admin Trade Name Freq PRN Reason Stop Dose Admin Ketorolac Tromethamine 15 mg 10/08/23 00:48 10/08/23 01:15 Ketorolac Tromethamine 15 Mg/Ml Vial IVPUSH 10/08/23 00:49 15 mg ONCE ONE Administration Morphine Sulfate 1 mg 10/08/23 00:48 10/08/23 01:15 Morphine Sulfate 2 Mg/Ml Cartridge IVPUSH 10/08/23 00:49 1 mg ONCE ONE Administration Protocol Discharge Plan Discharge Clinical Impression: Mass of pancreas, Cancer, metastatic to liver, Intractable abdominal pain Patient Disposition: Admitted As Inpatient Prescriptions: No Action atorvastatin 20 mg tablet 20 mg PO BEDTIME 30 Days Qty: 30 2RF Dulera 200-5 mcg/actuation HFA aerosol inhaler 2 puff inhalation BID Qty: 13 1RF fluticasone propionate 50 mcg/actuation spray,suspension 2 spray intranasal DAILY 30 Days Qty: 16 3RF albuterol sulfate [Ventolin HFA] 90 mcg/actuation HFA aerosol inhaler 2 puff inhalation Q6H PRN (Reason: shortness of breath or wheezing) Qty: 8.5 3RF bisacodyl [Dulcolax (bisacodyl)] 5 mg tablet,delayed release (DR/EC) 10 mg PO BEDTIME 2 Days Qty: 4 0RF
[2023-10-08 01:13] VITALS: BP 125/73; PULSE 89; RESP 17; TEMP 36.9; O2SAT 95
[2023-10-08] MEDS: Ketorolac Tromethamine 15 MG/ML VIAL IVPUSH (01:15)
[2023-10-08] MEDS: Morphine Sulfate 2 MG/ML CARTRIDGE 1 MG IVPUSH (01:15)
--- NOTE | 2023-10-08 01:39 | PC.NURSE ---
this rn assumed care of pt. pt a&ox4, respirations even and unlabored, pt reporting onset of right upper abdominal pain x2 days without relief. pt denies n/v/d. pt reports mild constipation with minimal bowel movements. 20G placed in left AC, pt medicated per sep for 10/10 pain.
--- NOTE | 2023-10-08 06:12 | P.HPHOSP_ITS ---
History of Present Illness Date of Service: 10/08/23 Attending physician on admission: Jeimy Gudino Chief Complaint: Abdominal pain Dima Jara is a 52 years old man with past medical history significant for hyperlipidemia and asthma presents to the emergency department complaining of severe abdominal over the last several days. He denied any associated nausea or vomiting. He mentioned that he has been constipated and has been taking stool softeners. Now, he has soft stools. Denies fever or chills. He also denied any headache, palpitations, dizziness, chest pain or shortness on breath. He denies poor appetite or weight loss. Denied family history of pancreatic cancer. He is tobacco smoker -1 PPD for more than 20 years. He smoked marijuana in occasions. Denied alcohol abuse or illicit drug use. In the ED, he was found to have stable vital signs. Blood workup was remarkable for leukocytosis of 13.1. There are no electrolyte imbalances. Renal function is normal. Transaminases are elevated. Bilirubin and alk-phos are normal. Abdomen pelvis CT scan showed 3.6 cm low-density mass in the distal body/tail of the pancreas consistent with neoplasm and numerous low-density liver lesions suspicious for metastatic disease. Abdomen US showed numerous low-density liver mass measuring up to 4.6 consistent with metastatic disease. ED tx: Toradol 15 mg IV, morphine 1 mg IV. Review of Systems 2 Review of Systems: All 12 systems were reviewed and normal except as noted in HPI. [facility] Medical History Screening for colon cancer Screening PSA (prostate specific antigen) Physical exam Hyperlipidemia Asthma Family History Father Mental health disorder Maternal Aunt Cancer Maternal Uncle Cancer Surgical History H/O wrist surgery Social History Housing: House Alcohol intake: never Patient Tobacco Use Status: Current everyday Tobacco user Cigarettes Per Day: 10 Smoked in Last 30 Days: Yes e-Cigarette/Vaping Use: Never Used Second Hand Smoke Exposure: No Use of substances other than those prescribed or required for medical reasons: Yes Substance Use Type: Marijuana Advance Directives: No Advance Directives Information Provided: Yes service: No Current occupational status: unemployed Cognitive needs: No Hearing needs: No Vision needs: No Meds Allergies Allergy/AdvReac Type Severity Reaction Status Date / Time garlic Allergy Unknown hives Verified 10/08/23 00:23 peanut [PEANUTS] Allergy Unknown HIVES Verified 10/08/23 00:23 Penicillins Allergy Unknown HIVES TO Verified 10/08/23 00:23 ALL CILLINS Sulfa (Sulfonamide Allergy Unknown HIVES, Verified 10/08/23 00:23 Antibiotics) rash, [SULFA (SULFONAMIDE severe ANTIBIOTICS)] hives barium sulfate AdvReac Unknown vivid Verified 10/08/23 00:23 nightmares nicotine AdvReac Unknown rash Verified 10/08/23 00:23 nuts Allergy Unknown Vomiting Uncoded 10/08/23 00:23 orange juice AdvReac Unknown Hives Uncoded 10/08/23 00:23 Active Medications: Current Medications Enoxaparin Sodium (Enoxaparin Sodium 40 Mg/0.4 Ml Syringe) 40 mg SUBCUT Q24H YU Hydromorphone HCl (Hydromorphone Hcl 0.5 Mg/0.5 Ml Syringe) 0.5 mg IVPUSH Q4H PRN; Protocol PRN Reason: Pain, Severe (Pain Scale 7-10) Sodium Chloride (0.9 % Sodium Chloride Flush 3 Ml Syringe) 3 ml IVFLUSH QSHIFT [facility] Physical Exam 2 Vital Signs and Narrative: Vital Signs: Last Vital Signs Temp 98.4 F 10/08/23 01:13 Pulse 89 10/08/23 01:13 Resp 17 10/08/23 01:13 BP 125/73 10/08/23 01:13 Pulse Ox 95 10/08/23 01:13 O2 Del Method Room Air 10/08/23 01:13 BMI result Body Mass Index 30.9 Constitutional - Awake and Alert, No apparent distress. Very anxious. HEENT - Pupils equally round. Normal sclerae. Dry oral mucosa. Heart - S1S2, RRR, No edema Lungs - Normal lung expansion, Normal respiratory effort, No respiratory distress, CTA bilaterally Abdomen - nondistended, epigastric tenderness; +BS; No rebound or guarding. Extremities - no calf tenderness bilaterally, no swelling Musculoskeletal - Normal inspection, normal ROM Skin - Warm/Dry Neurological - Alert & oriented x3. No focal weakness. Normal speech. Psychological - Appropriate affect Results Labs 10/08/23 00:30 10/08/23 00:30 Labs: Laboratory Results - last 24 hr 10/08/23 00:30 MCV 90.7 MCH 30.8 MCHC 34.0 RDW 12.5 Plt Count 209 MPV 9.8 Immature Gran % (Auto) 0.5 H Neut % (Auto) 65.5 Lymph % (Auto) 22.5 [place] % (Auto) 7.8 Eos % (Auto) 2.9 Baso % (Auto) 0.8 Lymph # (Auto) 3.0 [place] # (Auto) 1.0 Eos # (Auto) 0.4 Baso # (Auto) 0.1 Abs Immat Gran (auto) 0.06 H Absolute Neuts (auto) 8.6 H Absolute Nucleated RBC 0.000 Nucleated RBC % (auto) 0.0 Anion Gap 13 Estim Creat Clear Calc 86.8 Estimated GFR > 60 Random Glucose 112 Calcium 9.6 Total Bilirubin 0.5 Direct Bilirubin 0.2 AST 46 H ALT 78 H Alkaline Phosphatase 58 Total Protein 7.4 Albumin 4.1 Lipase 30 Imaging Radiologist's Impressions: Impressions Abdomen/Pelvis CT 10/08/23 01:16 IMPRESSION: 3.6 cm low-density mass in the distal body/tail of the pancreas consistent with neoplasm and numerous low-density liver lesions suspicious for metastatic disease. Fleischner guidelines were followed. Abdomen Ultrasound 10/08/23 01:48 IMPRESSION: There are numerous low-density liver masses measuring up to 4.6 consistent with metastatic disease. No gallstones or evidence for biliary dilatation. Assessment and Plan (1) Intractable abdominal pain: Status: Acute (2) Cancer, metastatic to liver: Status: Acute (3) Mass of pancreas: Status: Acute (4) Asthma: Qualifiers: Asthma severity: unspecified severity Asthma persistence: unspecified Asthma complication type: unspecified Qualified Code(s): J45.909 - Unspecified asthma, uncomplicated Status: Acute (5) Dyslipidemia: Status: Acute Plan Dima Jara is a 52 years old man admitted with: * Abdominal pain likely secondary to pancreatic mass. Keeping observation. Pain control with Dilaudid IV as needed. Diet as tolerated. * Suspected pancreatic neoplasm with liver metastasis. Oncology consult. * Leukocytosis likely secondary to pain. No other criteria for sepsis. Continue to monitor. * Hyperlipidemia. Hold statin for now due to elevated transaminases. * Asthma. Not in acute exacerbation. Monitor for symptoms. * Tobacco dependence. Tobacco cessation education. Nicotine gum as needed. Quality Stroke Does the patient have a stroke diagnosis?: No VTE Prior VTE?: No VTE Risk Level:: Medical - moderate - high VTE Device Contraindication: Treatment Not Indicated VTE Drug Contraindication: N/A - Med Ordered
[2023-10-08 06:25] LABS: Appearance Urine Turbid; Color Urine Dark Yellow; Glucose Urine UA Negative (Negative); Leukocyte Esterase Urine Negative (Negative); Nitrite Urine Negative (Negative); PH 5.5 (5.0-9.0); Specific Gravity - Urine >= 1.030 (1.005-1.025); Urine Blood Negative (Negative); Urine Ketones Negative (Negative); Urine Protein Trace mg/dL (Neg-Trace)
[2023-10-08 06:33] VITALS: BP 143/78; PULSE 72; RESP 15; TEMP 36.4; O2SAT 98
--- NOTE | 2023-10-08 06:39 | PC.NURSE ---
pt initial IV noted to infiltrate upon assessment. IV access removed, new access obtained, 20G in the right AC.
[2023-10-08] MEDS: Omeprazole 40 MG CAPSULE.DR PO (06:43)
--- NOTE | 2023-10-08 06:43 | PC.NURSE ---
pt medicated per mar, tolerated well with water.
[2023-10-08 07:30] VITALS: BP 133/76; PULSE 78; RESP 20; TEMP 36.6; O2SAT 97
--- NOTE | 2023-10-08 09:12 | PM.HEMONCCN ---
Subjective - Subjective Chief complaint: Consult for: Pancreatic mass, liver lesions. Patient: new to practice Consult date: 10/08/23 Requesting Physician: KAYLYN Primary Care Provider: JORI Deng Family Provider: JORI Deng Medical Summary: DIAGNOSIS: PANCREATIC MASS, LIVER LESIONS. HPI - Consult Narrative Reason for consult: Consult for: Pancreatic mass, liver lesions. Narrative: I have been asked by Dr. Domingo to see Dima Jara, who is a 52 year old gentleman. He tells me he was in good general health when suddenly he developed pain in his right upper quadrant 3 days ago. He also felt gassy. Pain worsened over the past 3 days to the extent that he was doubled over. That is when he decided to come in. Prior to this he would have occasional cramps in his lower rib areas that lasted few seconds and went away when he stretches arms above his head. Database: WBC 13, LFTs: 0.5/58/46/78. CT scan of the abdomen revealed: 3.6 cm low-density mass in the distal body/tail of the pancreas consistent with neoplasm and numerous low-density liver lesions suspicious for metastatic disease. Ultrasound of the abdomen revealed: There are numerous low-density liver masses measuring up to 4.6 consistent with metastatic disease. Doppler ultrasound of the abdomen revealed: The spleen measures 13.3 cm in size. The splenic vein is patent. There is no ascites. There are no collateral vessels. IMPRESSION: No abnormalities of the portal veins, hepatic arteries, hepatic veins, or splenic vein. PAST MEDICAL HISTORY: Screening for colon cancer Screening PSA (prostate specific antigen) Physical exam Hyperlipidemia Asthma FAMILY HISTORY: An aunt a couple of uncles of cancer but he does not know what side. 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 He is not . He has no children. He smokes less than a pack a day. He denies alcohol. 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 ROS: He has good energy level. He denies fever chills or night sweats. Appetite was great up until 3 days ago. He denies weight loss. No headache no dizziness. He denies any previous chest pain however when he developed the abdominal pain he could not breathe due to the pain. He felt as if a balloon is constricting his breathing. He had severe right upper quadrant pain 3 days ago. Pain has since subsided. His last dose of Dilaudid was when he came in last night. He denies any nausea or vomiting. He gets rare acid reflux he felt constipated. He took liquid stool softener after which he had the runs this morning. He denies any gross blood in the stools. He was in the process of getting . Colonoscopy his scheduled. Denies dysuria or hematuria. He has joint pains all over. Especially his back and neck. No focal weakness. He does get depressed at times. No skin rashes or pruritus. Review of Systems - Constitutional Reports system reviewed and no additional complaints, except as documented, Reports weakness, Reports weight loss - Eyes Reports system reviewed and no additional complaints, except as documented - ENT Reports system reviewed and no additional complaints, except as documented - Cardiovascular Reports system reviewed and no additional complaints, except as documented - Respiratory Reports no additional respiratory complaints - Gastrointestinal Reports system reviewed and no additional complaints, except as documented - Genitourinary Genitourinary: Reports no additional male genitourinary complaints - Musculoskeletal Reports system reviewed and no additional complaints, except as documented - Integumentary/Breasts Skin/Breast: Reports no additional skin complaints - Neurologic Reports system reviewed and no additional complaints, except as documented - Psychiatric Reports system reviewed and no additional complaints, except as documented - Endocrine Reports no additional endocrine complaints - Hematologic/Lymphatic Reports system reviewed and no additional complaints, except as documented - Allergic/Immunologic Reports system reviewed and no additional complaints, except as documented Oncology Screenings - ECOG Performance Status ECOG Performance Status: 0 [facility] Medical History: Medical History (Last Reviewed 10/13/23 @ 09:30 by Mayda Prater RN) Asthma Cancer, metastatic to liver Dyslipidemia Hyperlipidemia Mass of pancreas Physical exam Screening for colon cancer Screening PSA (prostate specific antigen) Functional capacity: independent ambulation Family History: Family History (Last Reviewed 10/08/23 @ 00:51 by Gonsalo Novak MD) Father Mental health disorder Maternal Aunt Cancer Maternal Uncle Cancer Surgical History: Surgical History (Last Reviewed 10/13/23 @ 09:30 by Mayda Prater RN) H/O wrist surgery Social History: Social History (Last Reviewed 10/08/23 @ 00:51 by Gonsalo Novak MD) Living Situation History: Housing: House Tobacco History: Patient Tobacco Use Status: Tobacco use Unknown e-Cigarette/Vaping Use: Never Used Second Hand Smoke Exposure: No Substance Use History: Substance Use Type: Marijuana Advance Directives: Advance Directives: No Advance Directives Information Provided: Yes Occupation Assessmet: service: No Current occupational status: unemployed Home Medications and Allergies Current Medications: Current Medications Enoxaparin Sodium (Enoxaparin Sodium 40 Mg/0.4 Ml Syringe) 40 mg SUBCUT Q24H YU Hydromorphone HCl (Hydromorphone Hcl 0.5 Mg/0.5 Ml Syringe) 0.5 mg IVPUSH Q4H PRN; Protocol PRN Reason: Pain, Severe (Pain Scale 7-10) Nicotine Polacrilex (Nicotine Polacrilex 2 Mg Gum) 2 mg BUCCAL Q2H PRN PRN Reason: Nicotine Cravings Omeprazole (Omeprazole 40 Mg Capsule.Dr) 40 mg PO DAILY@0630 [facility] Last Admin: 10/08/23 06:43 Dose: 40 mg Sodium Chloride (0.9 % Sodium Chloride Flush 3 Ml Syringe) 3 ml IVFLUSH QSHIFT [facility] Allergies Allergy/AdvReac Type Severity Reaction Status Date / Time morphine Allergy Intermediate Irritable Verified 10/13/23 09:33 garlic Allergy Unknown hives Verified 10/13/23 09:33 peanut [PEANUTS] Allergy Unknown HIVES Verified 10/13/23 09:33 Penicillins Allergy Unknown HIVES TO Verified 10/13/23 09:33 ALL CILLINS Sulfa (Sulfonamide Allergy Unknown HIVES, Verified 10/13/23 09:33 Antibiotics) rash, [SULFA (SULFONAMIDE severe ANTIBIOTICS)] hives barium sulfate AdvReac Unknown vivid Verified 10/13/23 09:33 nightmares nicotine AdvReac Unknown rash Verified 10/13/23 09:33 nuts Allergy Unknown Vomiting Uncoded 10/13/23 09:33 orange juice AdvReac Unknown Hives Uncoded 10/13/23 09:33 Physical Exam Vital signs: Vital Signs Temp 97.8 F 10/08/23 07:30 Pulse 78 10/08/23 07:30 Resp 20 10/08/23 07:30 BP 133/76 10/08/23 07:30 Pulse Ox 97 10/08/23 07:30 O2 Del Method Room Air 10/08/23 07:30 Intake & Output 10/07/23 10/08/23 10/08/23 18:59 06:59 18:59 Other: Weight 81.647 kg Weight 81.647 kg - Constitutional Present: no acute distress - Routine HEENT Exam Head: Present: normal inspection, normocephalic Eye: Present: normal appearance - Routine Neck Exam Present: supple - Routine Cardiovascular Exam Cardiovascular: Present: S1, S2 - Routine Abdominal Exam Present: normal bowel sounds, tenderness - Routine Extremities Exam Present: nontender - Routine Skin Exam Present: intact - Routine Psychiatric Exam Present: depressed Hem/Onc Consult Result - Labs CBC & Chem 7: 10/08/23 00:30 10/08/23 00:30 Labs: Short CBC 10/08/23 Range/Units 00:30 WBC 13.1 H (4.8-10.8) X10*3/uL Hgb 16.5 (14.0-18.0) g/dl Hct 48.5 (42.0-52.0) % Plt Count 209 (160-400) X10*3/uL BMP 10/08/23 00:30 Sodium 137 Potassium 4.1 Chloride 106 Carbon Dioxide 22 BUN 13 Creatinine 0.96 Calcium 9.6 Liver Function 10/08/23 Range/Units 00:30 Total Bilirubin 0.5 (0.0-1.0) mg/dL Direct Bilirubin 0.2 (0.0-0.5) mg/dL AST 46 H (5-37) U/L ALT 78 H (0-40) U/L Alkaline Phosphatase 58 (39-117) U/L Albumin 4.1 (3.5-5.0) g/dL Urine 10/08/23 Range/Units 06:16 Urine Color Dark Yellow Urine Appearance Turbid Urine pH 5.5 (5.0-9.0) Ur Specific [place] >= 1.030 H (1.005-1.025) Urine Protein Trace (Neg-Trace) mg/dL Urine Glucose (UA) Negative (Negative) mg/dL Assessment and Plan Patient Active problem list reviewed?: Yes (1) Cancer, metastatic to liver Status: Inactive Assessment and plan: This is an unfortunate 52-year-old gentleman who presented with 3 days' history of severe right upper quadrant pain. Database: WBC 13, LFTs: 0.5/58/46/78. CT scan of the abdomen revealed: 3.6 cm low-density mass in the distal body/tail of the pancreas consistent with neoplasm and numerous low-density liver lesions suspicious for metastatic disease. Ultrasound of the abdomen revealed: There are numerous low-density liver masses measuring up to 4.6 consistent with metastatic disease. Doppler ultrasound of the abdomen revealed: The spleen measures 13.3 cm in size. The splenic vein is patent. There is no ascites. There are no collateral vessels. No abnormalities of the portal veins, hepatic arteries, hepatic veins, or splenic vein. Concern is underlying pancreatic carcinoma with liver metastases. PLAN: To proceed with ultrasound-guided biopsy of 1 of the liver lesions. Biopsy has been scheduled for 10/12 at 10:30 AM as an outpatient. 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 Meanwhile, will get baseline tumor markers including CEA level: 103, and Ca 19 9: [id number]. I will see him on the outpatient basis, to review the pathology and make treatment recommendations. He is young and otherwise healthy so should be able to tolerate FOLFIRINOX. Will arrange for a Port-A-Cath placement as well. All his questions were answered to satisfaction. Thank you, CC: Sigifredo. 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 Will get MSI testing. - Time Spent With Patient Time Spent with Patient (in minutes): 30
[2023-10-08] MEDS: 0.9 % Sodium Chloride Flush 3 ML SYRINGE IVFLUSH (10:15)
--- NOTE | 2023-10-08 10:39 | PHA.MEDREC ---
Pharmacy Consult ? Medication Reconciliation Pharmacy has completed the medication reconciliation. Spoke to patient and confirmed medication list.
--- NOTE | 2023-10-08 10:48 | MHC.CM.PN ---
Met with patient in regards to discharge planning. Patient lives with his mother, ambulates independently and had no services prior to coming to the hospital. No services anticipated to be needed because patient is not homebound. PCP verified. Patient denies having a HCP. Information provided. Patient declining to complete one at this time. Obs notice explaiend and signed. Patient's car is in the hospital parking lot and he will transport himself home when medically stable. Continue to monitor for d/c needs.
--- NOTE | 2023-10-08 10:50 | PM.EVENT ---
Event Note Date of Service: 10/08/23 Event Note: Seen and evaluated this morning Pain under better control CT showed Pancreatic mass with liver mets To do US doppler r\o Portal vein thrombosis Pending Oncology eval will need biopsy of the liver mets Time Spent With Patient Time: Total time managing care of this patient today ____ minutes.
[2023-10-08 11:52] VITALS: BP 139/67; PULSE 79; RESP 201; TEMP 36.7; O2SAT 96
[2023-10-08 12:04] VITALS: PULSE 81; RESP 18; O2SAT 95
[2023-10-08] MEDS: Fluticasone/Vilanterol 200/25 BLST.W.DEV 1 PUFF INHALE (12:04)
--- NOTE | 2023-10-08 12:45 | PM.DS ---
DS: Providers Provider Date of Service: 10/08/23 Date of admission: 10/08/23 06:07 Primary care physician: ORION Deng Consults: 10/08/23 06:10 Consult to Hematology / Oncology Routine Consulting Provider: Bernie Ko Reason for consultation: Pancreatic mass with liver mets, new diagnosis Has provider been notified: No DS: Diagnosis Discharge Diagnosis (1) Cancer, metastatic to liver: Status: Acute (2) Intractable abdominal pain: Status: Acute (3) Mass of pancreas: Status: Acute DS: Summary Hospital Course Hospital Course: Admission note Dima Jara is a 52 years old man with past medical history significant for hyperlipidemia and asthma presents to the emergency department complaining of severe abdominal over the last several days. He denied any associated nausea or vomiting. He mentioned that he has been constipated and has been taking stool softeners. Now, he has soft stools. Denies fever or chills. He also denied any headache, palpitations, dizziness, chest pain or shortness on breath. He denies poor appetite or weight loss. Denied family history of pancreatic cancer. He is tobacco smoker -1 PPD for more than 20 years. He smoked marijuana in occasions. Denied alcohol abuse or illicit drug use. In the ED, he was found to have stable vital signs. Blood workup was remarkable for leukocytosis of 13.1. There are no electrolyte imbalances. Renal function is normal. Transaminases are elevated. Bilirubin and alk-phos are normal. Abdomen pelvis CT scan showed 3.6 cm low-density mass in the distal body/tail of the pancreas consistent with neoplasm and numerous low-density liver lesions suspicious for metastatic disease. Abdomen US showed numerous low-density liver mass measuring up to 4.6 consistent with metastatic disease. ED tx: Toradol 15 mg IV, morphine 1 mg IV. Hospital course The patient was admitted for evaluation of new pancreatic mass with liver lesions concerning for malignancy. CT scan as reported below. US was done showing liver lesions. Doppler ruled out any portal vein thrombosis. The patient was seen by dr Simon from Oncology who recommended Liver biopsy which will be done next Thursday as outpatient. Pain controlled with 1 dose of morphine. to be discharged on as needed morphine and Zofran with a plan to follow with dr Simon after the biopsy. Discharge Plan Present on Thursday 10/12 at 9 AM, fasting overnight, for Liver biopsy at radiology department. To follow with dr Simon as outpatient Morphine as needed for pain Zofran as needed for nasuea Time Attestation Discharge Coordination Time (in mins): 24 Quality: Safe Use of Opioids Does Pt have an Active Cancer Diagnosis on the Problem List?: No Quality: Stroke Does the patient have a stroke diagnosis?: No Physical Exam Vital Signs: Vital Signs: Last Vital Signs Temp 98.0 F 10/08/23 11:52 Pulse 81 10/08/23 12:04 Resp 18 10/08/23 12:04 BP 139/67 10/08/23 11:52 Pulse Ox 96 10/08/23 11:52 O2 Del Method Room Air 10/08/23 11:52 BMI result Body Mass Index 30.9 Const: Other: Constitutional : Awake, interactive, not in distress Neck : Normal inspection, Supple Cardiovascular : RRR, no JVP, no lower extremity edema Respiratory : good bilateral air entry, no crackles, wheezes or rhonchi Gastrointestinal: soft, lax, Normal bowel sounds, Non tender Skin : Warm, Dry Neurological : Alert & oriented x3, No focal deficit DS: Data Data Completed and Pending Labs on day of discharge: Laboratory Results - last 24 hr 10/08/23 10/08/23 00:30 06:16 WBC 13.1 H RBC 5.35 Hgb 16.5 Hct 48.5 MCV 90.7 MCH 30.8 MCHC 34.0 RDW 12.5 Plt Count 209 MPV 9.8 Immature Gran % (Auto) 0.5 H Neut % (Auto) 65.5 Lymph % (Auto) 22.5 [place] % (Auto) 7.8 Eos % (Auto) 2.9 Baso % (Auto) 0.8 Lymph # (Auto) 3.0 [place] # (Auto) 1.0 Eos # (Auto) 0.4 Baso # (Auto) 0.1 Abs Immat Gran (auto) 0.06 H Absolute Neuts (auto) 8.6 H Absolute Nucleated RBC 0.000 Nucleated RBC % (auto) 0.0 Sodium 137 Potassium 4.1 Chloride 106 Carbon Dioxide 22 Anion Gap 13 BUN 13 Creatinine 0.96 Estim Creat Clear Calc 86.8 Estimated GFR > 60 Random Glucose 112 Calcium 9.6 Total Bilirubin 0.5 Direct Bilirubin 0.2 AST 46 H ALT 78 H Alkaline Phosphatase 58 Total Protein 7.4 Albumin 4.1 Lipase 30 Carcinoembryonic Ag 119.50 Urine Color Dark Yellow Urine Appearance Turbid Urine pH 5.5 Ur Specific [place] >= 1.030 H Urine Protein Trace Urine Glucose (UA) Negative Urine Ketones Negative Urine Blood Negative Urine Nitrite Negative Ur Leukocyte Esterase Negative Imaging CT scan - abdomen: Radiologist's impression: ITS Impressions Abdomen/Pelvis CT 10/08/23 01:16 IMPRESSION: 3.6 cm low-density mass in the distal body/tail of the pancreas consistent with neoplasm and numerous low-density liver lesions suspicious for metastatic disease. Fleischner guidelines were followed. Abdomen Ultrasound 10/08/23 01:48 IMPRESSION: There are numerous low-density liver masses measuring up to 4.6 consistent with metastatic disease. No gallstones or evidence for biliary dilatation. Doppler Study Ultrasound 10/08/23 11:30 IMPRESSION: No abnormalities of the portal veins, hepatic arteries, hepatic veins, or splenic vein. Discharge Plan Discharge Anticipated Discharge Date/Time: 10/08/23 12:30 Patient Disposition: Home, Self-Care Discharge Diagnosis: Pancreatic mass Referrals: Colin Mei, PL[employer] DRILL OPERATOR- [Primary Care Provider] - 1 Week Discharge Medications: New ondansetron 4 mg tablet,disintegrating 4 mg PO Q8H PRN (Reason: nausea and vomiting) Qty: 30 1RF morphine 15 mg tablet extended release 7.5 mg PO Q8H Qty: 20 0RF Rx Instructions: Partial Fill upon patient request. Continued atorvastatin 20 mg tablet 20 mg PO BEDTIME 30 Days Qty: 30 2RF Dulera 200-5 mcg/actuation HFA aerosol inhaler 2 puff inhalation BID Qty: 13 1RF fluticasone propionate 50 mcg/actuation spray,suspension 2 spray intranasal DAILY 30 Days Qty: 16 3RF albuterol sulfate [Ventolin HFA] 90 mcg/actuation HFA aerosol inhaler 2 puff inhalation Q6H PRN (Reason: shortness of breath or wheezing) Qty: 8.5 3RF Discharge Orders: Discharge Order (Routine); Ordered 10/08/23 Ordered By: Christiano Domingo Diet: Advance to usual diet Activity on Discharge: As tolerated Stand Alone Forms: Patient Portal Discharge page Print Language: Lithuanian Care Plan Goals: Read below Health Concerns: Read below Plan of Treatment: Read below Assessment: Present on Thursday 10/12 at 9 AM, fasting overnight, for Liver biopsy at radiology department. To follow with dr Simon as outpatient Morphine as needed for pain Zofran as needed for nasuea
--- NOTE | 2023-10-08 13:50 | PC.NURSE ---
CC [place] allen/comfort pt from ED16
== END 2023-10-08 17:14 | disposition home or self-care (01) ==
LOC: HO.ED 02:42 → HO.EDOVER 06:11
PROVIDERS: Internal Medicine Medical Oncology; Admitting Provider Internal Medicine; Emergency Provider Emergency Medicine; PCP Nurse Practitioner Family; Visit Provider Student in an Organized Health Care Education/Training Program
DX: C78.7 Secondary malignant neoplasm of liver and intrahepatic bile duct (principal); K86.89 Other specified diseases of pancreas; R10.11 Right upper quadrant pain; J45.909 Unspecified asthma, uncomplicated; E78.5 Hyperlipidemia, unspecified; R16.0 Hepatomegaly, not elsewhere classified; K59.00 Constipation, unspecified; K76.9 Liver disease, unspecified; D72.829 Elevated white blood cell count, unspecified; Z80.9 Family history of malignant neoplasm, unspecified; Z79.899 Other long term (current) drug therapy
CPT/HCPCS: 36415; 74176; 76705; 80048; 80076; 81003; 82378; 83690; 85025; 86301; 93975; 94640; 96374; 96375; 99221; 99285; J1885; J2270

== ENCOUNTER → 2023-10-08 06:07 | Outpatient (BNV) | payer OTHER, SELFPAY | PROVIDERS: Admitting Provider Internal Medicine; Emergency Provider Emergency Medicine; PCP Nurse Practitioner Family; Visit Provider Internal Medicine Medical Oncology | DX: K86.9 Disease of pancreas, unspecified (principal) | CPT/HCPCS: 99222 ==

== ENCOUNTER → 2023-10-08 06:07 | Outpatient (BNV) | payer OTHER, SELFPAY | PROVIDERS: Admitting Provider Internal Medicine; Emergency Provider Emergency Medicine; PCP Nurse Practitioner Family; Visit Provider Internal Medicine | DX: R10.9 Unspecified abdominal pain (principal); C78.7 Secondary malignant neoplasm of liver and intrahepatic bile duct; K86.89 Other specified diseases of pancreas; J45.909 Unspecified asthma, uncomplicated; E78.5 Hyperlipidemia, unspecified | CPT/HCPCS: 99235; 99499 ==

== ENCOUNTER 2023-10-13 08:54 | Day surgery (SDC) | payer OTHER, SELFPAY ==
[2023-10-13] VITALS (8 sets, daily range): BP systolic 124–150; BP diastolic 66–94; PULSE 78–91; RESP 16–18; TEMP 36.5–36.8; O2SAT 94–97
--- NOTE | ~2023-10-13 | US_ITS ---
Patient presents with a pancreatic mass and multiple liver lesions concerning for metastases. PROCEDURES: 1. Limited preprocedure ultrasound of the abdomen. Permanent images saved in PACS. 2. Ultrasound-guided biopsy of the right lobe liver mass. 3. Limited preprocedure ultrasound of the abdomen. Permanent images saved in PACS. CLINICIANS: Charanjit Aponte PA-C MEDICATIONS: -Versed 1.5 mg, Fentanyl 75 mcg, and lidocaine 1% 10 mL SQ -Antibiotics: None -For additional details, please see nursing flowsheet. COMPLICATIONS: None ESTIMATED BLOOD LOSS: < 5 ml CONTRAST: None SPECIMENS: 4 x 20 g cores were sent to pathology MODERATE SEDATION TIME: 22 min PROCEDURE NOTE: The procedure, risks, benefits, and alternatives were carefully explained to the patient and written informed consent was obtained. The patient was placed supine on the exam table. A timeout was performed. A limited ultrasound of the abdomen was performed to localize the right lobe liver lesion and choose appropriate needle entry and trajectory. The patient was prepped and draped in usual sterile fashion. The skin and deeper soft tissues were anesthetized with lidocaine. Under ultrasound guidance, a 19 gague trocar needle was advanced to the liver lesion. A 20 gauge biopsy device was inserted through the trocar needle advanced into the liver lesion. A total of 4, 20 gague cores were performed. The specimens were placed in formalin. A total of 2 Gelfoam torpedoes were then administered through the trocar needle into the biopsy tract and at the level of the liver capsule. The needle was removed. A limited post procedure ultrasound was then performed. Images were saved in PACS. A dry dressing was applied and secured with Tegaderm. There were no immediate complications. The patient was stable after the procedure and was transferred to the post anesthesia care unit. The procedure was done under moderate sedation with a dedicated nurse for monitoring of vital signs. US/US biopsy liver Impression: Ultrasound-guided biopsy of a right lobe liver mass. This procedure was performed by Charanjit Aponte PA-C and supervised by Dr. Owens.
[2023-10-13 10:06] LABS: Prothrombin Time 12.5 SEC (11.1-13.3)
[2023-10-13 10:09] LABS: Partial Thromboplastin Time 30.9 SEC (26.0-36.8)
--- NOTE | 2023-10-13 10:35 | MHC.SHP ---
Pre-Procedural Eval Section A - 24 Hr Update-Section A only Date of Service: 10/13/23 Section B - Complete if H&P > 30 days Chief Complaint: PANCREATIC MASS LIVER LESIONS Details of Present Illness: liver lesions concerning for metastatic pancreatic ca Relevant Family History (Specify if Yes): No Relevant Social History: None Present Medications: see Short Stay Collaborative assessment Medical History: Significant History (back pain, asthma) History of Previous Operations: No relevant previous surgery Allergies: Allergies Allergy/AdvReac Type Severity Reaction Status Date / Time morphine Allergy Intermediate Irritable Verified 10/13/23 09:33 garlic Allergy Unknown hives Verified 10/13/23 09:33 peanut [PEANUTS] Allergy Unknown HIVES Verified 10/13/23 09:33 Penicillins Allergy Unknown HIVES TO Verified 10/13/23 09:33 ALL CILLINS Sulfa (Sulfonamide Allergy Unknown HIVES, Verified 10/13/23 09:33 Antibiotics) rash, [SULFA (SULFONAMIDE severe ANTIBIOTICS)] hives barium sulfate AdvReac Unknown vivid Verified 10/13/23 09:33 nightmares nicotine AdvReac Unknown rash Verified 10/13/23 09:33 nuts Allergy Unknown Vomiting Uncoded 10/13/23 09:33 orange juice AdvReac Unknown Hives Uncoded 10/13/23 09:33 Review of Systems Sugical H&P ROS: Negative: Constitution, Cardiovascular and Respiratory and Yes, Specify: Gastrointestinal (central abdominal discomfort, constipation) Exam Surgical H&P Exam: Normal: Heart, Normal: Lungs, Normal: Skin and Normal: Neurological (A+O x 4), Not Evaluated: HEENT and Not Evaluated: Extremities and Significant Findings: Abdomen (soft, protuberant, ttp epigastrum) Plan Diagnosis/Plan: Unchanged I have reviewed the history and physical and performed a pertinent physical examination on my patient. No changes have occurred unless specified. Time Spent With Patient Time: Total time managing care of this patient today ____ minutes.
[2023-10-13] MEDS: Lidocaine HCl 1 % MPF 5 ML VIAL 10 ML SUBCUT (11:07)
== END 2023-10-13 13:21 | disposition home or self-care (01) ==
PROVIDERS: Physician Assistant Surgical; PCP Nurse Practitioner Family; Visit Provider Internal Medicine Medical Oncology
DX: K86.9 Disease of pancreas, unspecified (principal); C78.7 Secondary malignant neoplasm of liver and intrahepatic bile duct; E78.5 Hyperlipidemia, unspecified; J45.909 Unspecified asthma, uncomplicated; Z79.899 Other long term (current) drug therapy; Z88.0 Allergy status to penicillin; Z88.2 Allergy status to sulfonamides; F17.210 Nicotine dependence, cigarettes, uncomplicated
CPT/HCPCS: 36415; 47000; 76942; 85610; 85730; 86850; 86900; 86901; 88307; 88341; 88342; 99152; 99153; J2250; J2310; J3010

== ENCOUNTER → 2023-10-13 10:30 | Outpatient (BNV) | payer OTHER, SELFPAY | PROVIDERS: PCP Nurse Practitioner Family; Visit Provider Physician Assistant Surgical | DX: K86.9 Disease of pancreas, unspecified (principal) | CPT/HCPCS: 47000; 76942 ==